=== PATIENT | female | born 1995 | race Caucasian/White ===

== ENCOUNTER 2017-11-08 13:19 | Outpatient (CLI) | END 2017-11-08 18:19 | disposition home or self-care (01) ==

== ENCOUNTER 2017-11-09 17:48 | Outpatient (CLI) | END 2017-11-09 19:23 | disposition home or self-care (01) ==

== ENCOUNTER 2017-11-11 16:37 | Outpatient (CLI) | END 2017-11-11 21:11 | disposition home or self-care (01) ==

== ENCOUNTER 2017-11-14 18:56 | Outpatient (CLI) | END 2017-11-14 21:52 | disposition home or self-care (01) ==

== ENCOUNTER 2017-11-16 11:16 | Outpatient (CLI) | END 2017-11-16 21:51 | disposition home or self-care (01) ==

== ENCOUNTER 2017-11-19 10:48 | Outpatient (CLI) | END 2017-11-19 17:40 | disposition home or self-care (01) ==

== ENCOUNTER 2017-12-01 08:19 | Inpatient (IN) | END 2017-12-03 18:35 | disposition home or self-care (01) | DRG 775 ==